=== PATIENT | male | born 1975 | race Caucasian/White ===

== ENCOUNTER 2021-01-10 12:01 | Emergency (ER) | payer OTHER ==
[2021-01-10 12:46] LABS: HEMOGLOBIN 16.1 gm/dl (14.0-17.5); RED BLOOD COUNT 4.87 M/UL (4.20-5.50); WHITE BLOOD COUNT 9.6 K/UL (4.5-11.0)
[2021-01-10 13:10] LABS: BUN/CREATININE RATIO 15 (0-10)
== END 2021-01-10 14:30 | disposition home or self-care (01) ==
LOC: ER1 12:01
PROVIDERS: Physician Assistant
DX: R53.83 Other fatigue (principal); R19.7 Diarrhea, unspecified; Z90.89 Acquired absence of other organs; F17.210 Nicotine dependence, cigarettes, uncomplicated; Z20.822 Contact with and (suspected) exposure to COVID-19; Z88.0 Allergy status to penicillin
CPT/HCPCS: 71045; 80053; 82550; 82553; 83874; 84484; 85025; 87081; 87880; 93005; 99285; U0002